=== PATIENT | female | born 1955 ===

== ENCOUNTER 2016-11-09 18:35 | Emergency (ER) | payer OTHER ==
[2016-11-09 18:36] VITALS: BMI 25.6
[2016-11-09 19:04] VITALS: TEMP 98.2
--- NOTE | 2016-11-09 21:09 | CT ---
EXAM: CT Head Without Intravenous Contrast CLINICAL HISTORY: 61 years old, female; Pain; Headache; Headache not specified TECHNIQUE: Axial computed tomography images of the head/brain without intravenous contrast. This CT exam was performed using one or more of the following dose reduction techniques: automated exposure control, adjustment of the mA and/or kV according to patient size, and/or use of iterative reconstruction technique. Coronal and sagittal reformatted images were created and reviewed. EXAM DATE/TIME: 11/09/2016 7:52 PM COMPARISON: There are no prior studies for comparison. FINDINGS: Brain: There is prominence of sulci gyri and ventricles. There is no midline shift. There is decreased attenuation in periventricular white matter. There are multiple age-indeterminate lacunar infarcts in the basal ganglia bilaterally. There are no focal masses. There are no focal hemorrhages. Giron-white differentiation is visualized. Ventricles: See above Bones: Cranial vault is intact. Soft tissues: unremarkable Sinuses: There is sphenoid sinus disease Ears and mastoids: Middle ears and mastoids are unremarkable. Orbits: Orbital contents are unremarkable. IMPRESSION: Multiple bilateral age-indeterminate lacunar infarcts in the basal ganglia, no bleed; sphenoid sinus disease
[2016-11-09 21:19] VITALS: BP 158/89; PULSE 86; RESP 20; O2SAT 100
[2016-11-09 21:34] LABS: BASO % 0.2 % (0.0-2.0); HEMATOCRIT 37.4 % (34.0-47.0); LYMPH # 2.1 K/uL (1.0-4.3); LYMPH % 26.5 % (20.0-40.0); MEAN CELL VOLUME 83.5 fl (81.0-99.0); MEAN CORPUSCULAR HEMOGLOBIN 27.4 pg (27.0-31.0); MEAN CORPUSCULAR HGB CONC 32.8 g/dL (33.0-37.0); MEAN PLATELET VOLUME 9.2 fl (7.2-11.7); MONO # 0.7 K/uL (0.0-0.8); MONO % 8.8 % (0.0-10.0); NEUT # 5.1 K/uL (1.8-7.0); NEUT % 64.5 % (50.0-75.0); NRBC % 0.1 % (0.0-0.0); RED CELL DISTRIBUTION WIDTH 14.2 % (11.5-14.5); WHITE BLOOD COUNT 7.9 K/uL (4.8-10.8)
[2016-11-09 21:45] LABS: BLOOD UREA NITROGEN 15 mg/dl (7-17); CALCIUM 9.9 mg/dL (8.4-10.2); CARBON DIOXIDE 29 mmol/L (22-30); CHLORIDE 99 mmol/L (98-107); GFR AFRICAN-AMERICAN > 60; GLUCOSE,RANDOM 326 mg/dL (65-105); POTASSIUM 4.6 MMOL/L (3.6-5.0); SODIUM 144 mmol/l (132-148)
--- NOTE | 2016-11-09 22:38 | ED PDOC ---
HPI: General Adult Time Seen by Provider: 11/09/16 19:26 Chief Complaint (Nursing): Headache Chief Complaint (Provider): neck pain, h/a History Per: Patient Additional Complaint(s): pt presents c/o R sided neck pain for two weeks, now with R sided h/a x one week. denies recent fall or injury but states she has been getting around in wheelchair for months r/t R foot fx. no numbness, weakness distally, cp, sob, abd pain, n/v, dizziness, blurred vision. no relief with tylenol taken at home this am. Past Medical History Reviewed: Historical Data, Nursing Documentation, Vital Signs Vital Signs: Last Vital Signs Temp 98.2 F 11/09/16 19:03 Pulse 86 11/09/16 21:19 Resp 20 11/09/16 21:19 BP 158/89 H 11/09/16 21:19 Pulse Ox 100 11/09/16 21:19 - Medical History PMH: Arthritis, Diabetes, Fractures (trimalleolar ), HTN, Hypercholesterolemia, Hyperlipidemia Denies: Chronic Kidney Disease - Surgical History Surgical History: - Family History Family History: States: No Known Family Hx - Social History Current smoker - smoking cessation education provided: No Alcohol: None Drugs: Denies - Immunization History Hx Tetanus Toxoid Vaccination: No Hx Influenza Vaccination: No Hx Pneumococcal Vaccination: No - Home Medications Home Medications: Ambulatory Orders Medication Instructions Recorded Losartan [Cozaar] 50 mg PO DAILY 06/16/16 MetFORMIN [glucOPHAGE] 1,000 mg PO BID 06/16/16 Insulin Human (NPH)/Regular 7 units SUBCUT BID 07/11/16 [Novolin 70/30 (70/30 units/ml) 10 ml] amLODIPine [Norvasc] 5 mg PO DAILY 07/11/16 oxyCODONE/Acetaminophen [Percocet 1 tab PO Q4 PRN #30 tab 07/19/16 5/325 mg Tab] Vit E Acetate/Gly/Dimeth/Water 473 ml TP BID #1 lotion 08/22/16 [Moisturizing Lotion] Cyclobenzaprine [Flexeril] 5 mg PO Q8 #15 tab 11/09/16 Naproxen [Naprosyn Tab] 375 mg PO BID #20 tab 11/09/16 - Allergies Allergies/Adverse Reactions: Allergies Allergy/AdvReac Type Severity Reaction Status Date / Time No Known Allergies Allergy Verified 11/09/16 19:02 Review of Systems ROS Statement: Except As Marked, All Systems Reviewed And Found Negative Musculoskeletal: Positive for: Neck Pain Neurological: Positive for: Headache Physical Exam - Reviewed Nursing Documentation Reviewed: Yes Vital Signs Reviewed: Yes - Physical Exam Appears: Positive for: Non-toxic, Uncomfortable Head Exam: Positive for: ATRAUMATIC, NORMAL INSPECTION, NORMOCEPHALIC Skin: Positive for: Normal Color, Warm, DRY Eye Exam: Positive for: EOMI, Normal appearance, PERRL Neck: Positive for: Pain On Movement Of Neck (R rotation, flexion. no midline tenderness) Cardiovascular/Chest: Positive for: Regular Rate, Rhythm Respiratory: Positive for: CNT, Normal Breath Sounds Gastrointestinal/Abdominal: Positive for: Normal Exam, Bowel Sounds, Soft. Negative for: Tenderness Extremity: Positive for: Normal ROM. 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 Negative for: Motor/Sensory Deficits - Laboratory Results Result Diagrams: 11/09/16 21:26 11/09/16 21:26 - ECG O2 Sat by Pulse Oximetry: 100 Medical Decision Making Medical Decision Making: pt declining morphine as it is too strong for her. ct head shows no acute abnormality. labs wnl excepting hyperglycemia. ekg shows LBBB, no change from previous 06/22. 2230 h/a resolved on it's own and neck pain improving w/o intervention. bp improved. will d/c home on naprosyn, flexeril to f/u pmd. Disposition - Clinical Impression Clinical Impression: Cervical strain - Patient ED Disposition Is Patient to be Admitted: No - Disposition Referrals: [facility] [Outside] Disposition: Routine/Home Disposition Time: 22:40 Condition: GOOD Prescriptions: Cyclobenzaprine [Flexeril] 5 mg PO Q8 #15 tab Naproxen [Naprosyn Tab] 375 mg PO BID #20 tab Instructions: Cervical Sprain (ED) Print Language: GUATEMALAN
--- NOTE | 2016-11-10 19:11 | CARD ---
APPROVED REPORT EKG Measurement Heart [id number] AR [id number] <Conclusion> Normal sinus rhythm Possible Left atrial enlargement Left bundle branch block Abnormal ECG
== END 2016-11-09 23:15 | disposition home or self-care (01) ==
LOC: H.ER 18:35
DX: R51 Headache (principal); M54.2 Cervicalgia; E11.9 Type 2 diabetes mellitus without complications; I10 Essential (primary) hypertension

== ENCOUNTER 2017-04-15 18:59 | Emergency (ER) | payer SELFPAY ==
[2017-04-15 18:59] VITALS: BMI 25.6
[2017-04-15 19:15] VITALS: RESP 18; TEMP 98.5; O2SAT 97
[2017-04-15] MEDS ORDERED: Sodium Chloride 0.9% 500 ML IV STA (19:45)
--- NOTE | 2017-04-15 19:53 | ED PDOC ---
HPI: Wound Care - HPI Time Seen by Provider: 04/15/17 19:36 Chief Complaint (Nursing): Lower Extremity Problem/Injury Chief Complaint (Provider): Lower Extremity Problem/Injury History Per: Patient Exam Limitations: no limitations Onset/Duration Of Symptoms: Days (x3) Current Symptoms Are (Timing): Still Present Additional Complaint(s): Aisha Dang is a 62 year old female with previous medical history of HTN, hypercholestolemia, arthritis and diabetes, who presents to the emergency department with right ankle pain associated with redness, swelling and watery discharge at previous surgical site ongoing for 3 days. Denied any numbness, tingling sensation, calf tenderness, shortness of breath, chest pain or weakness. Patient stated she had right ankle surgery performed by podiatry residents at [facility] on 07/2016 and took Tylenol for pain relief. PMD: none provided Past Medical History Reviewed: Historical Data, Nursing Documentation, Vital Signs Vital Signs: Last Vital Signs Temp 98.5 F 04/15/17 19:12 Pulse 88 04/15/17 19:12 Resp 18 04/15/17 19:12 BP 156/72 H 04/15/17 19:12 Pulse Ox 97 04/15/17 19:12 - Medical History PMH: Arthritis, Diabetes, Fractures (trimalleolar ), HTN, Hypercholesterolemia, Hyperlipidemia Denies: Chronic Kidney Disease - Surgical History Surgical History: - Family History Family History: States: Unknown Family Hx - Social History Current smoker - smoking cessation education provided: No Alcohol: None Drugs: Denies - Immunization History Hx Tetanus Toxoid Vaccination: No Hx Influenza Vaccination: No Hx Pneumococcal Vaccination: No - Home Medications Home Medications: Ambulatory Orders Medication Instructions Recorded Losartan [Cozaar] 50 mg PO DAILY 06/16/16 MetFORMIN [glucOPHAGE] 1,000 mg PO BID 06/16/16 Insulin Human (NPH)/Regular 7 units SUBCUT BID 07/11/16 [Novolin 70/30 (70/30 units/ml) 10 ml] amLODIPine [Norvasc] 5 mg PO DAILY 07/11/16 oxyCODONE/Acetaminophen [Percocet 1 tab PO Q4 PRN #30 tab 07/19/16 5/325 mg Tab] Vit E Acet/Glycerin/Dimeth/H2o 473 ml TP BID #1 lotion 08/22/16 [Moisturizing Lotion] Cyclobenzaprine [Flexeril] 5 mg PO Q8 #15 tab 11/09/16 Naproxen [Naprosyn Tab] 375 mg PO BID #20 tab 11/09/16 - Allergies Allergies/Adverse Reactions: Allergies Allergy/AdvReac Type Severity Reaction Status Date / Time No Known Allergies Allergy Verified 11/09/16 19:02 Review of Systems ROS Statement: Except As Marked, All Systems Reviewed And Found Negative Constitutional: Negative for: Weakness Cardiovascular: Negative for: Chest Pain Respiratory: Negative for: Shortness of Breath Musculoskeletal: Positive for: Foot Pain (right ankle associated with redness, swelling and watery drainage). Negative for: Other (calf tenderness) Neurological: Negative for: Numbness (or tingling ) Physical Exam - Reviewed Nursing Documentation Reviewed: Yes Vital Signs Reviewed: Yes - Physical Exam Appears: Positive for: Well, Non-toxic, No Acute Distress Head Exam: Positive for: ATRAUMATIC, NORMAL INSPECTION, NORMOCEPHALIC Cardiovascular/Chest: Positive for: Regular Rate, Rhythm. Negative for: Chest Non Tender Respiratory: Positive for: Normal Breath Sounds. Negative for: Respiratory Distress Pulses-Dorsalis Pedis (L): 2+ Pulses-Dorsalis Pedis (R): 2+ Back: Positive for: Normal Inspection. Negative for: L CVA Tenderness, R CVA Tenderness Extremity: Positive for: Normal ROM, Tenderness (right ankle laterally), Deformity (surgical site noted on right ankle), Swelling (R ankle). 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 No DVT in the visualized common femoral, femoral, proximal deep femoral or popliteal veins. The veins demonstrate normal color flow, are normally compressible, with normal phasic flow and/or augmentation response. Superficial veins: Unremarkable. No thrombus in the visualized great saphenous vein. Soft tissues: No acute findings. No popliteal cyst. IMPRESSION: Normal right lower extremity duplex venous ultrasound. Scribe Attestation: Documented by Lina Renteria, acting as a scribe for Je Chavarria MD. Provider Scribe Attestation: All medical record entries made by the Scribe were at my direction and personally dictated by me. I have reviewed the chart and agree that the record accurately reflects my personal performance of the history, physical exam, medical decision making, and the department course for this patient. I have also personally directed, reviewed, and agree with the discharge instructions and disposition. 2140: Stable. AAOx3. Pain controlled. Podiatry saw pt. Will address wound. States no infection and will fu in clinic. No antibiotics. Glucose elevated , will give insulin. Disposition - Clinical Impression Clinical Impression: Wound dehiscence, Hyperglycemia - Patient ED Disposition Is Patient to be Admitted: No Counseled Patient/Family Regarding: Studies Performed, Diagnosis, Need For Followup - Disposition Referrals: [facility] [Outside] - 04/17/17 Podiatry Clinic [Outside] - 04/17/17 Disposition: Routine/Home Disposition Time: 20:41 Condition: STABLE Additional Instructions: Return if not better in 3 days. Instructions: Diabetic Hyperglycemia (ED), Wound Dehiscence (ED) Forms: [employer] (Puerto Rican) Print Language: TRINIDADIAN
--- NOTE | 2017-04-15 20:22 | CP.PCM.CON ---
History of Present Illness - History of Present Illness History of Present Illness: 62 year old female with PMHx including Diabetes, HTN, Hypercholesterolemia, Hyperlipidemia was seen at bedside ED regarding right ankle wound. Patient states that she had right ankle ORIF July of 2016. She states that since the surgery, she has had pain in her right foot and ankle. 3 days ago she noticed drainage coming for a wound on her right ankle. Patient states that the wound has been presents for 2 weeks. Patient denies taking any medication for pain. Denies applying dressing to right ankle wound. Patient denies of any N /V/F/C or SOB today. Past Patient History - Past Medical History & Family History Past Medical History?: Yes - Past Social History Alcohol: None Drugs: Denies - CARDIAC Hx Hypercholesterolemia: Yes Hx Hypertension: Yes - PULMONARY Hx Respiratory Disorders: No - NEUROLOGICAL Hx Neurological Disorder: No - HEENT Hx HEENT Problems: No - RENAL Hx Chronic Kidney Disease: No - ENDOCRINE/METABOLIC Hx Endocrine Disorders: No Hx Diabetes Mellitus Type 2: Yes - HEMATOLOGICAL/ONCOLOGICAL Hx Blood Disorders: No - INTEGUMENTARY Hx Dermatological Problems: No - MUSCULOSKELETAL/RHEUMATOLOGICAL Hx Arthritis: Yes Hx Fractures: Yes (trimalleolar ) - GASTROINTESTINAL Hx Gastrointestinal Disorders: No - GENITOURINARY/GYNECOLOGICAL Hx Genitourinary Disorders: No - PSYCHIATRIC Hx Psychophysiologic Disorder: No Hx Substance Use: No - SURGICAL HISTORY Hx Surgeries: Yes Hx Section: Yes (x1) - ANESTHESIA Hx Anesthesia: Yes Hx Anesthesia Reactions: No Hx Malignant Hyperthermia: No Meds Allergies/Adverse Reactions: Allergies Allergy/AdvReac Type Severity Reaction Status Date / Time No Known Allergies Allergy Verified 11/09/16 19:02 - Medications Medications: Current Medications Sodium Chloride (Sodium Chloride 0.9%) 500 mls @ 100 mls/hr IV .Q5H STA Stop: 04/16/17 00:44 Physical Exam - Constitutional Appears: Well, Non-toxic, No Acute Distress - Extremities Exam Additional comments: right lower extremity focused exam: Vasc: DP and PT 2/4, TG wnl, CFT < 3 sec to all digits, no edema Neuro: grossly sensation diminished Derm: Open ulceration measuring approximately 4 mm by 2 mm noted on the proximal aspect of the previous surgical incision site, base is fibrogranular, no drainage noted, no purulence, no acute clinical signs of infection noted. Non -pitting edema noted to right foot and ankle. Ortho: tenderness on palpation of right ankle - Neurological Exam Neurological exam: Alert, Oriented x3 - Psychiatric Exam Psychiatric exam: Normal Affect, Normal Mood Results - Vital Signs Recent Vital Signs: Last Vital Signs Temp 98.5 F 04/15/17 19:12 Pulse 88 04/15/17 19:12 Resp 18 04/15/17 19:12 BP 156/72 H 04/15/17 19:12 Pulse Ox 97 04/15/17 20:09 - Labs Result Diagrams: 04/15/17 20:40 04/15/17 20:45 Assessment & Plan - Assessment and Plan (Free Text) Assessment: 62 year old female 9 months s/p right ankle ORIF with open ulceration Plan: patient examined and evaluated discussed in detail with attending, Dr. Shaw chart, labs, vitals reviewed;afebrile, WBC 6.1 radiographs reviewed: surgical hardware noted to be intact wound cleansed with normal sterile saline dressed with bacitracin, DSD, YESI patient to dressing wound daily with bacitracin and DSD RICE therapy motrin PRN patient to follow up in podiatry clinic
[2017-04-15 20:51] LABS: BASO % 0.4 % (0.0-2.0); HEMATOCRIT 33.9 % (34.0-47.0); LYMPH # 1.6 K/uL (1.0-4.3); MEAN CELL VOLUME 80.9 fl (81.0-99.0); MEAN CORPUSCULAR HEMOGLOBIN 25.6 pg (27.0-31.0); MEAN CORPUSCULAR HGB CONC 31.6 g/dL (33.0-37.0); MEAN PLATELET VOLUME 8.8 fl (7.2-11.7); MONO # 0.6 K/uL (0.0-0.8); MONO % 9.2 % (0.0-10.0); NEUT # 3.9 K/uL (1.8-7.0); NEUT % 64.4 % (50.0-75.0); NRBC % 0.1 % (0.0-0.0); RED CELL DISTRIBUTION WIDTH 15.9 % (11.5-14.5); WHITE BLOOD COUNT 6.1 K/uL (4.8-10.8)
[2017-04-15 20:53] LABS: VENOUS BLOOD GAS BASE EXCESS 2.6 mmol/L (0.0-2.0); VENOUS BLOOD GAS PCO2 48 mmHg (40-60); VENOUS BLOOD PH 7.38 (7.32-7.43)
[2017-04-15 21:04] LABS: ALB/GLOB RATIO 1.3 (1.0-2.1); ALKALINE PHOSPHATASE 117 U/L (38-126); ALT/SGPT 28 U/L (9-52); AST/SGOT 16 U/L (14-36); BILIRUBIN,TOTAL 0.5 mg/dl (0.2-1.3); BLOOD UREA NITROGEN 26 mg/dl (7-17); CALCIUM 9.2 mg/dL (8.4-10.2); CARBON DIOXIDE 24 mmol/L (22-30); CHLORIDE 100 mmol/L (98-107); GFR AFRICAN-AMERICAN > 60; GLUCOSE,RANDOM 383 mg/dL (65-105); POTASSIUM 3.6 MMOL/L (3.6-5.0); SODIUM 138 mmol/l (132-148); TOTAL PROTEIN 7.4 G/DL (6.3-8.2)
[2017-04-15 21:36] LABS: PARTIAL THROMBOPLASTIN TIME 30.2 Seconds (25.6-37.1)
[2017-04-15] MEDS ORDERED: Insulin Regular 100 units/ml IV STA (21:38)
[2017-04-15] MEDS ORDERED: Insulin Regular 100 units/ml ONE (21:59)
[2017-04-16 00:20] VITALS: BP 180/77; PULSE 85
--- NOTE | 2017-04-16 09:25 | US ---
PROCEDURE: Right lower extremity venous duplex Doppler. HISTORY: r/o dvt COMPARISON: None available. TECHNIQUE: Common femoral, superficial femoral, popliteal and posterior tibial veins were evaluated. Flow was assessed with color Doppler, compressibility, assessment of phasic flow and augmentation response. FINDINGS: COMMON FEMORAL VEIN: Unremarkable. SUPERFICIAL FEMORAL VEIN: Unremarkable. POPLITEAL VEIN: Unremarkable. POSTERIOR TIBIAL VEIN: Unremarkable. OTHER FINDINGS: None. IMPRESSION: No evidence of deep venous thrombosis in the right lower extremity. Concordant results (preliminary interpretation) provided by [facility]. Procedure Completed: 20:08 Preliminary ([facility]) Report: Dictated and Authenticated: 20:35 Final Interpretation: 09:23. April 16, 2017.
--- NOTE | 2017-04-16 09:47 | RAD ---
PROCEDURE: Right Ankle Radiographs. HISTORY: Pain. No history of recent/ related trauma provided Relevant surgical history: July 2016 COMPARISON: None FINDINGS: BONES: Diffuse osteopenia progressive compared to the prior study. No evidence of orthopedic hardware failure. JOINTS: Normal. No osteoarthritis. Ankle mortise maintained. Talar dome intact SOFT TISSUES: Normal. OTHER FINDINGS: None. IMPRESSION: No acute findings related to/accounting for the clinical presentation. Concordant results with the preliminary interpretation rendered by the emergency department physician procedure.
== END 2017-04-15 23:45 | disposition home or self-care (01) ==
LOC: H.ER 18:59
DX: T81.31XA Disruption of external operation (surgical) wound, not elsewhere classified, initial encounter (principal); B95.62 Methicillin resistant Staphylococcus aureus infection as the cause of diseases classified elsewhere; E11.65 Type 2 diabetes mellitus with hyperglycemia; E78.5 Hyperlipidemia, unspecified; I10 Essential (primary) hypertension; Z79.4 Long term (current) use of insulin; Z79.84 Long term (current) use of oral hypoglycemic drugs
CPT/HCPCS: 73610; 80053; 82803; 82948; 85025; 85610; 85730; 87040; 87070; 93971; 96374; 99283; J1885; J7040

== ENCOUNTER 2017-06-19 11:21 | Emergency (ER) | payer SELFPAY ==
[2017-06-19 11:28] VITALS: TEMP 97; BMI 30.3
[2017-06-19 11:31] VITALS: O2SAT 98
--- NOTE | 2017-06-19 12:41 | ED PDOC ---
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 states today she went to the podiatry clinic and was found to have an elevated BP 202/102. Pt. states she took her Losartan (does not know how many miligrams) 30 minutes prior to going to the podiatry clinic. States that she has increased tearing to both eyes but no pain or visual changes. Denies headache, chest pain, SOB, palpitations, fever, abdominal pain. Past Medical History Reviewed: Historical Data, Nursing Documentation, Vital Signs Vital Signs: Last Vital Signs Temp 97 F L 06/19/17 11:27 Pulse 83 06/19/17 11:27 Resp BP 194/103 H 06/19/17 11:27 Pulse Ox 98 06/19/17 11:29 - Medical History PMH: Arthritis, Diabetes, Fractures (trimalleolar ), HTN, Hypercholesterolemia, Hyperlipidemia Denies: Chronic Kidney Disease - Surgical History Surgical History: - Family History Family History: States: No Known Family Hx - Immunization History Hx Tetanus Toxoid Vaccination: No Hx Influenza Vaccination: No Hx Pneumococcal Vaccination: No - Home Medications Home Medications: Ambulatory Orders Medication Instructions Recorded Losartan [Cozaar] 50 mg PO DAILY 06/16/16 MetFORMIN [glucOPHAGE] 1,000 mg PO BID 06/16/16 Insulin Human (NPH)/Regular 7 units SUBCUT BID 07/11/16 [Novolin 70/30 (70/30 units/ml) 10 ml] amLODIPine [Norvasc] 5 mg PO DAILY 07/11/16 oxyCODONE/Acetaminophen [Percocet 1 tab PO Q4 PRN #30 tab 07/19/16 5/325 mg Tab] Vit E Acet/Glycerin/Dimeth/H2o 473 ml TP BID #1 lotion 08/22/16 [Moisturizing Lotion] Cyclobenzaprine [Flexeril] 5 mg PO Q8 #15 tab 11/09/16 Naproxen [Naprosyn Tab] 375 mg PO BID #20 tab 11/09/16 Amoxicillin/Clavulanate [Augmentin 1 tab PO BID #20 tab 05/15/17 500 MG-125 MG] - Allergies Allergies/Adverse Reactions: Allergies Allergy/AdvReac Type Severity Reaction Status Date / Time No Known Allergies Allergy Verified 11/09/16 19:02 Review of Systems ROS Statement: Except As Marked, All Systems Reviewed And Found Negative Physical Exam - Reviewed Nursing Documentation Reviewed: Yes Vital Signs Reviewed: Yes - Physical Exam Appears: Positive for: Well, Non-toxic, No Acute Distress Head Exam: Positive for: ATRAUMATIC, NORMAL INSPECTION, NORMOCEPHALIC Skin: Positive for: Normal Color, Warm. Negative for: Rash Eye Exam: Positive for: Normal appearance, EOMI, PERRL. Negative for: Periorbital swelling, Periorbital tenderness, Conjunctival injection (b/l) ENT: Positive for: Normal ENT Inspection Neck: Positive for: Normal, Painless ROM Cardiovascular/Chest: Positive for: Regular Rate, Rhythm Respiratory: Positive for: CNT, Normal Breath Sounds Gastrointestinal/Abdominal: Positive for: Normal Exam, Bowel Sounds, Soft. Negative for: Tenderness, Mass Back: Positive for: Normal Inspection Extremity: Positive for: Normal ROM Neurologic/Psych: Positive for: Alert, Oriented. Negative for: Aphasia, Facial Droop - ECG O2 Sat by Pulse Oximetry: 98 - Progress ED Course And Treament: Pt. evaluated by Zana, podiatry resident, and arranged for outpt f/u with their clinic in 1 week. BP: 146/75 Disposition - Clinical Impression Clinical Impression: Hypertension - Patient ED Disposition Is Patient to be Admitted: No - Disposition Disposition: Routine/Home Disposition Time: 13:40 Condition: STABLE Instructions: Hypertension (ED) Forms: [employer] (Beninese) Print Language: CYMRO
[2017-06-19 13:02] VITALS: PULSE 74; RESP 18
[2017-06-19 13:44] VITALS: BP 146/75
--- NOTE | 2017-06-19 17:56 | CP.PCM.CON ---
History of Present Illness - History of Present Illness History of Present Illness: 62 year old female seen in the ED after being sent there from the podiatry clinic for elevated blood pressure. Patient states that she was supposed to have surgery this morning to remove painful hardware in her right ankle that is causing an ulceration but she did not receive medical clearance from the doctors in time. Patient states that she has very little pain in her right ankle. She denies any further pedal complaints at this time. She denies N/V/F/C/ CP/SOB. Patient denies any recent headaches, changes in vision or changes in facial expression Past Patient History - Past Medical History & Family History Past Medical History?: Yes - Past Social History Smoking Status: Never Smoked - CARDIAC Hx Hypercholesterolemia: Yes Hx Hypertension: Yes - PULMONARY Hx Respiratory Disorders: No - NEUROLOGICAL Hx Neurological Disorder: No - HEENT Hx HEENT Problems: No - RENAL Hx Chronic Kidney Disease: No - ENDOCRINE/METABOLIC Hx Endocrine Disorders: No Hx Diabetes Mellitus Type 2: Yes - HEMATOLOGICAL/ONCOLOGICAL Hx Blood Disorders: No - INTEGUMENTARY Hx Dermatological Problems: No - MUSCULOSKELETAL/RHEUMATOLOGICAL Hx Arthritis: Yes Hx Fractures: Yes (trimalleolar ) - GASTROINTESTINAL Hx Gastrointestinal Disorders: No - GENITOURINARY/GYNECOLOGICAL Hx Genitourinary Disorders: No - PSYCHIATRIC Hx Psychophysiologic Disorder: No Hx Substance Use: No - SURGICAL HISTORY Hx Surgeries: Yes Hx Section: Yes (x1) - ANESTHESIA Hx Anesthesia: Yes Hx Anesthesia Reactions: No Hx Malignant Hyperthermia: No Meds Allergies/Adverse Reactions: Allergies Allergy/AdvReac Type Severity Reaction Status Date / Time No Known Allergies Allergy Verified 11/09/16 19:02 Physical Exam - Constitutional Appears: Well, Non-toxic, No Acute Distress - Extremities Exam Additional comments: VASC: DP pulses palpable 2/4 b/l. PT pulses weakly palpable 1/4 b/l. CFT <3 seconds to all digits. TG warm to warm. No increase in warmth noted to RLE ulceration or periwound area. Pedal hair absent. NEURO: Gross sensation intact bilaterally. DERM: Ulceration noted to lateral right ankle, proximal to lateral malleolus measuring approximately 2.5 x 0.5 x 0.1 cm - ulcer is noted to have a granular base with no drainage, purulence, malodor, undermining, tunneling, or periwound fluctuance. No underlying hardware is visible at this time. ORTHO: Pain on palpation RLE ulceration - Neurological Exam Neurological exam: Alert, Oriented x3 - Psychiatric Exam Psychiatric exam: Normal Affect, Normal Mood Results - Vital Signs Recent Vital Signs: Last Vital Signs Temp 97 F L 06/19/17 11:27 Pulse 74 06/19/17 13:43 Resp 18 06/19/17 13:43 BP 146/75 06/19/17 13:43 Pulse Ox 98 06/19/17 14:01 Assessment & Plan - Assessment and Plan (Free Text) Assessment: 62 year old female PMHx HTN, DM with right lateral ankle nonhealing ulceration, noninfected secondary to underlying hardware from previous surgery Plan: Patient seen and evaluated in ED Discussed with attending, Dr. Landa Labs and vitals reviewed No signs of infection noted at this time Ulceration cleansed with sterile saline and dressed with DSD Stable from podiatry standpoint Patient to follow up with Dr. Landa next Monday, 06/26 in the podiatry clinic - Date & Time Date: 06/19/17 Time: 15:01
== END 2017-06-19 14:19 | disposition home or self-care (01) ==
LOC: H.ER 11:21
DX: I10 Essential (primary) hypertension (principal); E11.9 Type 2 diabetes mellitus without complications; E78.00 Pure hypercholesterolemia, unspecified; Z79.4 Long term (current) use of insulin

== ENCOUNTER 2017-08-14 11:08 | Emergency (ER) | payer OTHER, SELFPAY ==
[2017-08-14 11:08] VITALS: BMI 30.3
[2017-08-14 14:12] VITALS: RESP 18
[2017-08-14] MEDS ORDERED: Naproxen 500 MG TAB PO STA (14:44)
--- NOTE | 2017-08-14 15:09 | ED PDOC ---
HPI: Headache Time Seen by Provider: 08/14/17 15:00 Chief Complaint (Nursing): Headache Chief Complaint (Provider): Headache and dental pain History Per: Patient History/Exam Limitations: no limitations Onset/Duration Of Symptoms: Other (months) Additional Complaint(s): Patient is a 62 y/o female with no significant past medical history presenting to the emergency department for evaluation of dental pain ongoing for several months with associated headache and facial pain. Patient was initially given antibiotics with reported improvement of symptoms. However, the pain returned. Denies any other complaints. PCP: none provided. Past Medical History Reviewed: Historical Data, Nursing Documentation, Vital Signs Vital Signs: Last Vital Signs Temp 98.0 F 08/14/17 12:35 Pulse 85 08/14/17 14:11 Resp 18 08/14/17 14:11 BP 185/87 H 08/14/17 14:11 Pulse Ox 100 08/14/17 14:11 - Medical History PMH: Arthritis, Diabetes, Fractures (trimalleolar ), HTN, Hypercholesterolemia, Hyperlipidemia Denies: Chronic Kidney Disease - Surgical History Surgical History: - Family History Family History: States: Unknown Family Hx - Immunization History Hx Tetanus Toxoid Vaccination: No Hx Influenza Vaccination: No Hx Pneumococcal Vaccination: No - Home Medications Home Medications: Ambulatory Orders Medication Instructions Recorded Losartan [Cozaar] 50 mg PO DAILY 06/16/16 MetFORMIN [glucOPHAGE] 1,000 mg PO BID 06/16/16 Insulin Human (NPH)/Regular 7 units SUBCUT BID 07/11/16 [Novolin 70/30 (70/30 units/ml) 10 ml] amLODIPine [Norvasc] 5 mg PO DAILY 07/11/16 oxyCODONE/Acetaminophen [Percocet 1 tab PO Q4 PRN #30 tab 07/19/16 5/325 mg Tab] Vit E Acet/Glycerin/Dimeth/H2o 473 ml TP BID #1 lotion 08/22/16 [Moisturizing Lotion] Cyclobenzaprine [Flexeril] 5 mg PO Q8 #15 tab 11/09/16 Naproxen [Naprosyn Tab] 375 mg PO BID #20 tab 11/09/16 Amoxicillin/Clavulanate [Augmentin 1 tab PO BID #20 tab 05/15/17 500 MG-125 MG] Naproxen 1 tab PO Q12 PRN #14 tab 08/14/17 Penicillin VK [Penicillin VK Tab] 500 mg PO QID #40 tab 08/14/17 - Allergies Allergies/Adverse Reactions: Allergies Allergy/AdvReac Type Severity Reaction Status Date / Time No Known Allergies Allergy Verified 11/09/16 19:02 Review of Systems ROS Statement: Except As Marked, All Systems Reviewed And Found Negative ENT: Positive for: Other (dental pain) Neurological: Positive for: Headache (and facial pain) Physical Exam - Reviewed Nursing Documentation Reviewed: Yes Vital Signs Reviewed: Yes - Physical Exam Appears: Positive for: Well, Non-toxic, No Acute Distress Head Exam: Positive for: ATRAUMATIC, NORMAL INSPECTION, NORMOCEPHALIC Skin: Positive for: Normal Color, Warm, Dry Eye Exam: Positive for: Normal appearance ENT: Positive for: Other (multiple teeth decay with tenderness on palpation) Neck: Positive for: Normal, Painless ROM, Supple Cardiovascular/Chest: Positive for: Regular Rate, Rhythm Respiratory: Negative for: Accessory Muscle Use, Respiratory Distress Extremity: Positive for: Normal ROM. Negative for: Pedal Edema Neurologic/Psych: Positive for: Alert, Oriented (x3) - ECG O2 Sat by Pulse Oximetry: 100 (RA) Pulse Ox Interpretation: Normal Medical Decision Making Medical Decision Making: Time: 14:44 Initial impression: Headache Initial plan: Naproxen 500 mg PO Penicillin 500 mg PO ~ Scribe Attestation: Documented by Shahrzad Montoya, acting as a scribe for FELIX Dennison. Provider Scribe Attestation: All medical record entries made by the Scribe were at my direction and personally dictated by me. I have reviewed the chart and agree that the record accurately reflects my personal performance of the history, physical exam, medical decision making, and the department course for this patient. I have also personally directed, reviewed, and agree with the discharge instructions and disposition. Disposition - Clinical Impression Clinical Impression: Pain, dental - Patient ED Disposition Is Patient to be Admitted: No - Disposition Referrals: Enrrique Pacheco DDS [Staff Provider] - Disposition: Routine/Home Disposition Time: 15:35 Condition: FAIR Prescriptions: Naproxen 1 tab PO Q12 PRN #14 tab PRN Reason: Pain, Moderate (4-7) Penicillin VK [Penicillin VK Tab] 500 mg PO QID #40 tab Instructions: Toothache (ED) Forms: [facility] (Swedish) Print Language: UKRAINIAN
[2017-08-14 15:37] VITALS: BP 163/65; PULSE 78; TEMP 98
[2017-08-15 00:42] VITALS: O2SAT 100
== END 2017-08-14 15:37 | disposition home or self-care (01) ==
LOC: H.ER 11:08
DX: K08.89 Other specified disorders of teeth and supporting structures (principal); E11.9 Type 2 diabetes mellitus without complications; E78.00 Pure hypercholesterolemia, unspecified; I10 Essential (primary) hypertension; Z79.4 Long term (current) use of insulin

== ENCOUNTER 2017-08-22 09:11 | Emergency (ER) | payer SELFPAY ==
[2017-08-22 09:14] VITALS: BMI 27.4
[2017-08-22 09:16] VITALS: PULSE 80; TEMP 98.5
[2017-08-22] MEDS ORDERED: Iohexol 240 (50 ml) PO ONE (10:37)
--- NOTE | 2017-08-22 10:40 | ED PDOC ---
HPI: Back Chief Complaint (Provider): Left lower abdominal pain History Per: Patient, Family History/Exam Limitations: no limitations Onset/Duration Of Symptoms: Days (1 week ), Gradual Current Symptoms Are (Timing): Constant Quality Of Discomfort: Sharp, Dull, "Pain" Severity: Moderate Pain Scale Rating Of: 9 Previous Symptoms: None Associated Symptoms: None Exacerbating Factor(s): Movement, Sitting Additional Complaint(s): 62 y/o female with PMHx of DM, HTN, HLD presents complaining of 1 week hx of LLQ abominal pain. Pain started gradually without any inciting/triggering events. Pain started off in LLQ and began radiating to left lower back. Pain started as 4/10 and worsened acutely last night to 9/10. Pain is constant, and pt denies any alleviating factors. No relation with food consumption. Last BM was yesterday, hard stool, no straining. Denies taking any medications other than prescribed meds. No other complaints. No hx of diverticulosis or issues. No hx of colonoscopy. LMP 16 years ago. Denies fever/chills, CP/SOB/ Palpitations, N/V/D/C, changes in appetite, urinary symptoms, melena, hematochezia, numbness/tingling. <Richard Brownlee - Last Filed: 08/22/17 11:11> <Phong Funk - Last Filed: 08/22/17 14:19> Chief Complaint (Nursing): Back Pain Past Medical History Vital Signs: Last Vital Signs Temp 98.5 F 08/22/17 09:14 Pulse 80 08/22/17 09:14 Resp 17 08/22/17 09:14 BP 194/87 H 08/22/17 09:14 Pulse Ox 98 08/22/17 09:14 - Medical History PMH: Arthritis, Diabetes, Fractures (trimalleolar ), HTN, Hypercholesterolemia, Hyperlipidemia Denies: Chronic Kidney Disease - Surgical History Surgical History: - Family History Family History: States: Unknown Family Hx - Immunization History Hx Tetanus Toxoid Vaccination: No Hx Influenza Vaccination: No Hx Pneumococcal Vaccination: No <Richard Brownlee - Last Filed: 08/22/17 11:11> Vital Signs: Last Vital Signs Temp 98.5 F 08/22/17 09:14 Pulse 80 08/22/17 09:14 Resp 17 08/22/17 09:14 BP 148/68 08/22/17 10:45 Pulse Ox 98 08/22/17 11:16 <Phong Funk - Last Filed: 08/22/17 14:19> - Home Medications Home Medications: Ambulatory Orders Medication Instructions Recorded Losartan [Cozaar] 50 mg PO DAILY 06/16/16 MetFORMIN [glucOPHAGE] 1,000 mg PO BID 06/16/16 Insulin Human (NPH)/Regular 7 units SUBCUT BID 07/11/16 [Novolin 70/30 (70/30 units/ml) 10 ml] amLODIPine [Norvasc] 5 mg PO DAILY 07/11/16 oxyCODONE/Acetaminophen [Percocet 1 tab PO Q4 PRN #30 tab 07/19/16 5/325 mg Tab] Vit E Acet/Glycerin/Dimeth/H2o 473 ml TP BID #1 lotion 08/22/16 [Moisturizing Lotion] Cyclobenzaprine [Flexeril] 5 mg PO Q8 #15 tab 11/09/16 Naproxen [Naprosyn Tab] 375 mg PO BID #20 tab 11/09/16 Amoxicillin/Clavulanate [Augmentin 1 tab PO BID #20 tab 05/15/17 500 MG-125 MG] Naproxen 1 tab PO Q12 PRN #14 tab 08/14/17 Penicillin VK [Penicillin VK Tab] 500 mg PO QID #40 tab 08/14/17 Dicyclomine [Dicyclomine HCl] 10 mg PO Q8 #10 cap 08/22/17 Docusate [Colace] 100 mg PO DAILY #10 cap 08/22/17 - Allergies Allergies/Adverse Reactions: Allergies Allergy/AdvReac Type Severity Reaction Status Date / Time No Known Allergies Allergy Verified 11/09/16 19:02 Review of Systems ROS Statement: Except As Marked, All Systems Reviewed And Found Negative <Richard Brownlee - Last Filed: 08/22/17 11:11> Physical Exam - Reviewed Vital Signs Reviewed: Yes - Physical Exam Appears: Positive for: Non-toxic, No Acute Distress Head Exam: Positive for: ATRAUMATIC, NORMOCEPHALIC Skin: Positive for: Normal Color, Warm, Dry Eye Exam: Positive for: EOMI, PERRL. Negative for: Conjunctival injection, Scleral icterus Cardiovascular/Chest: Positive for: Regular Rate, Rhythm. Negative for: Chest Non Tender, JVD Respiratory: Positive for: Normal Breath Sounds. Negative for: Crackles, Rales , Rhonchi Pulses-Carotid (L): 2+ Pulses-Carotid (R): 2+ Gastrointestinal/Abdominal: Positive for: Bowel Sounds (normal BS), Soft, Tenderness (LLQ), Guarding (voluntary guarding in region of LLQ). Negative for : Organomegaly, Mass, Distended, Rebound, Asicites Back: Negative for: L CVA Tenderness, R CVA Tenderness, Vertebral Tenderness, Muscle Spasm Extremity: Negative for: Tenderness, Pedal Edema Neurologic/Psych: Positive for: Alert, account contact associate II-XII, Oriented. Negative for: Motor/Sensory Deficits <Richard Brownlee - Last Filed: 08/22/17 11:11> - ECG O2 Sat by Pulse Oximetry: 98 - Progress ED Course And Treament: CMP CBC UA Abd/Pelvic CT w PO/IV contrast Bentyl 10mg re-evaluate <Richard Brownlee - Last Filed: 08/22/17 11:11> - Laboratory Results Result Diagrams: 08/22/17 11:20 08/22/17 11:20 <Phong Funk - Last Filed: 08/22/17 14:19> Disposition <Richard Brownlee - Last Filed: 08/22/17 11:11> - Patient ED Disposition Is Patient to be Admitted: No Counseled Patient/Family Regarding: Studies Performed, Diagnosis, Need For Followup, Rx Given - Disposition Disposition: Routine/Home Disposition Time: 14:17 <Phong Funk - Last Filed: 08/22/17 14:19> - Clinical Impression Clinical Impression: Abdominal pain, Constipation - Disposition Referrals: [facility] [Outside] Condition: FAIR Prescriptions: Dicyclomine [Dicyclomine HCl] 10 mg PO Q8 #10 cap Docusate [Colace] 100 mg PO DAILY #10 cap Instructions: Abdominal Pain (ED), Constipation (ED) Forms: [facility] (Ukrainian)
[2017-08-22] MEDS ORDERED: Iohexol 240 (50 ml) ONE (10:52)
[2017-08-22 11:30] LABS: HEMOGLOBIN 11.6 g/dL (12.0-16.0); MEAN CELL VOLUME 80.1 fl (81.0-99.0); MEAN CORPUSCULAR HEMOGLOBIN 25.8 pg (27.0-31.0); MEAN CORPUSCULAR HGB CONC 32.2 g/dL (33.0-37.0); RBC 4.5 Mil/uL (3.80-5.20); RED CELL DISTRIBUTION WIDTH 15.3 % (11.5-14.5); WHITE BLOOD COUNT 8.3 K/uL (4.8-10.8)
[2017-08-22 11:31] LABS: SQUAMOUS EPITHIAL < 1 /hpf (0-5); URINE BILIRUBIN NEGATIVE (NEGATIVE); URINE BLOOD NEGATIVE (NEGATIVE); URINE CLARITY CLEAR (Clear); URINE COLOR COLORLESS (YELLOW); URINE GLUCOSE (UA) 150 mg/dL (Normal); URINE LEUKOCYTE ESTERASE NEG Leu/uL (Negative); URINE NITRATE NEGATIVE (NEGATIVE); URINE PROTEIN NEGATIVE (NEGATIVE); URINE UROBILINOGEN 0.2-1.0 mg/dL (0.2-1.0)
[2017-08-22 11:41] LABS: ALBUMIN 4.3 g/dL (3.5-5.0); ALT/SGPT 28 U/L (9-52); AST/SGOT 22 U/L (14-36); BLOOD UREA NITROGEN 20 mg/dl (7-17); CALCIUM 9.7 mg/dL (8.4-10.2); GFR AFRICAN-AMERICAN > 60; GFR NON-AFRICAN AMERICAN > 60
[2017-08-22 11:44] LABS: ALB/GLOB RATIO 1.1 (1.0-2.1)
[2017-08-22] MEDS ORDERED: Potassium Chloride 20 mEq/15 ml LIQ UD PO ONE (12:16)
[2017-08-22] MEDS ORDERED: Sodium Chloride 0.9% 50 ML IV ONE (12:42)
[2017-08-22] MEDS ORDERED: Iohexol 300 100 ML IJ ONE (12:42)
--- NOTE | 2017-08-22 14:02 | CT ---
PROCEDURE: CT Abdomen and Pelvis with contrast HISTORY: Left lower quadrant pain, back pain COMPARISON: None. TECHNIQUE: Contrast dose: 95 cc Omnipaque 300. Radiation dose: Total exam DLP = 959.47 mGy-cm. This CT exam was performed using one or more of the following dose reduction techniques: Automated exposure control, adjustment of the mA and/or kV according to patient size, and/or use of iterative reconstruction technique. FINDINGS: LOWER THORAX: Small hiatal hernia. LIVER: Unremarkable. No gross lesion or ductal dilatation. GALLBLADDER AND BILE DUCTS: Unremarkable. PANCREAS: Unremarkable. No gross lesion or ductal dilatation. SPLEEN: Unremarkable. ADRENALS: Unremarkable. No mass. KIDNEYS AND URETERS: Unremarkable. No hydronephrosis. No solid mass. VASCULATURE: Unremarkable. No aortic aneurysm. BOWEL: Diffuse thickening of the wall of the stomach. However, the stomach is partially collapsed. The findings are nonspecific but can be seen with gastritis. Constipation without fecal impaction or obstruction. APPENDIX: Normal appendix. PERITONEUM: Unremarkable. No free fluid. No free air. LYMPH NODES: Unremarkable. No enlarged lymph nodes. BLADDER: Unremarkable. REPRODUCTIVE: Unremarkable. BONES: No acute fracture. OTHER FINDINGS: None. IMPRESSION: No significant or acute findings to account for/ related to the clinical presentation. Additional benign and/or incidental findings described above. This includes small hiatal hernia. Collapse of the stomach is likely accounting for thickening of gastric mucosa.
[2017-08-22 14:30] VITALS: BP 156/86; RESP 18; O2SAT 100
== END 2017-08-22 14:30 | disposition home or self-care (01) ==
LOC: H.ER 09:11
DX: K59.00 Constipation, unspecified (principal); R10.32 Left lower quadrant pain; E11.9 Type 2 diabetes mellitus without complications; I10 Essential (primary) hypertension; Z79.4 Long term (current) use of insulin
CPT/HCPCS: 74177; 80053; 81003; 85027; 96372; 99283; J0500; Q9966; Q9967

== ENCOUNTER 2017-11-20 09:11 | Day surgery (SDC) | payer SELFPAY ==
[2017-11-15 11:25] VITALS: BMI 29.5
[2017-11-20] MEDS ORDERED: Bupivacaine 0.5% Inj(30mL) ONE (10:22)
[2017-11-20] MEDS ORDERED: Lidocaine Hydrochloride 1% 0 ML ONE (10:22)
[2017-11-20] MEDS ORDERED: Propofol 10 mg/ml Inj (20 ML) ONE (10:56)
[2017-11-20] MEDS ORDERED: Midazolam 2 MG/2 ML VIAL ONE (10:57)
[2017-11-20] MEDS ORDERED: Lidocaine 2% Jelly (5 ml) TOP ONE (10:59)
[2017-11-20] MEDS ORDERED: Succinylcholine 200 mg/10 ml Inj IV ONE (11:04)
[2017-11-20] MEDS ORDERED: Rocuronium 10 mg/ml (5 ml) ONE (11:09)
[2017-11-20] MEDS ORDERED: Sevoflurane - Inhalation Anesthetic Liq (250 ml) ONE (11:13)
[2017-11-20] MEDS ORDERED: Lactated Ringer's 1,000 ML IV ONE ×2 (11:28→14:00)
[2017-11-20] MEDS ORDERED: Bupivacaine 0.5% 50 ML IJ ONE (11:37)
[2017-11-20] MEDS ORDERED: Lidocaine 2% MPF (5 ml) Inj ONE (12:36)
[2017-11-20] MEDS ORDERED: Neostigmine 1:1000 (1 mg/ml) Inj ONE (12:55)
--- NOTE | 2017-11-20 14:03 | PCM.SURG1 ---
Surgeon's Initial Post Op Note - Surgeon's Notes Surgeon: Dr. Shayne Landa, DPM Cosmetic Sales Assistant: Caty Adamson, PGY2, Lisa Guido PGY1 Type of Anesthesia: General Endo Anesthesia Administered By: Dr. Soria Pre-Operative Diagnosis: Painful hardware, right ankle Operative Findings: See dictation report. M- 3-0 vicryl, 4-0 vicryl, 4-0 nylon. I- Postoperative popliteal block Post-Operative Diagnosis: Same Operation Performed: Removal of painful hardware, right ankle Specimen/Specimens Removed: None Estimated Blood Loss: EBL {In ML}: 5 Blood Products Given: N/A Drains Used: No Drains Post-Op Condition: Good Date of Surgery/Procedure: 11/20/17 Time of Surgery/Procedure: 14:03
[2017-11-20] MEDS ORDERED: Oxycodone/Acetaminophen 5/325 mg Tab PO PRN ×2 (14:05)
[2017-11-20] MEDS ORDERED: HYDROmorphone 0.5 mg/0.5 ml ISec IVP PRN (14:06)
--- NOTE | 2017-11-20 14:17 | PCM.ANESB2 ---
Popliteal Nerve Block - Popliteal Nerve Block Date of Procedure: 11/20/17 Anesthesiologist: Raymundo Messina M.D. Pre-Procedure Diagnosis: Hardware, Right ankle Post-Procedure Diagnosis: Hardware, Right ankle Procedure Performed: Popliteal Nerve Block Right - Procedure Popliteal Nerve Block: This procedure was explained to the patient that it is for post-operative pain management. Consent was obtained after a thorough discussion with the patient regarding the benefits and possible complications of local anesthetic block of the sciatic nerve at the popliteal level. The patient was brought to the operating room and standard monitors are applied. Time-out was held with the circulating nurse to confirm the correct surgery and the appropriate block.Under general anesthesia, patient positioned prone, popliteal nerve block was done using out of plane technique. The ultrasound transducer was then applied to the posterior thigh approximately 8cm above the popliteal crease in the transverse plane and the sciatic nerve before its division was visualized lateral to the popliteal artery and in between the bicep femoris and semimembranosus/semitendinosus muscles. After identification, the lateral portion of the thigh was prepped with Betadine solution three times and Lidocaine 1% was injected subcutaneously for topical anesthesia. At this point, a # 21 gauge Stimuplex insulated 4 inch needle was inserted into pre-marked area and advanced in a perpendicular direction. The needle was inserted above the ultrasound transducer in-plane towards the sciatic nerve in a [id number] direction. Needle advancement was performed carefully under direct ultrasound visualization. Nerve stimulator was used and dorsiflexion of the _right____ foot was elicited at a current of _.4____ MA. After repeated negative aspiration, _30____cc of __.5___ % _Bupivacaine was injected . . Under ultrasound guidance the local anesthetics were observed surrounding sciatic nerve . The needle was removed intact and sterile dressing was applied. The patient tolerated the popliteal nerve block well with stable vital signs and was subsequently brought to the pacu. .
[2017-11-20] MEDS ORDERED: Labetalol 5 mg/ml Inj 20ML IVP STA (14:31)
--- NOTE | 2017-11-20 14:58 | RAD ---
PROCEDURE: Right Ankle Radiographs. HISTORY: s/p removal of hardware right ankle COMPARISON: Preoperative study 11/08/2017 FINDINGS: BONES: Status post removal of orthopedic hardware distal tibia and fibula. Expected postoperative findings identified. JOINTS: No significant interval change compared to the prior examination(s). SOFT TISSUES: Normal. OTHER FINDINGS: None. IMPRESSION: Satisfactory postoperative status.
--- NOTE | 2017-11-20 15:08 | RAD ---
PROCEDURE: Fluoroscopy over 1 hour. HISTORY: RIGHT ANKLE COMPARISON: None TECHNIQUE: Total fluoroscopic time (continuous mode) utilized during the procedure 2.9 seconds FINDINGS: Submitted images from the current procedure: 1.0 IMPRESSION: Fluoroscopy provided for removal of orthopedic hardware distal tibia and fibula.
--- NOTE | 2017-11-20 16:27 | CP.PCM.PN ---
Subjective - Date & Time of Evaluation Date of Evaluation: 11/20/17 Time of Evaluation: 16:21 - Subjective Subjective: 62 year old female seen preoperatively in [facility] for removal of hardware with possible lateral and medial malleoli osteotomies. Patient is AAO x 3 and NAD, resting comfortably in bed at time of visit. States that she continues to have moderate amounts of pain to her right ankle. Denies any recent N/V/F/C/CP/SOB/D/ posterior calf pain when squeezed. Patient states that she has been NPO since before midnight last night. States that she took her normal diabetes and hypertension medication this morning. Also denies any previous adverse reactions to anesthesia. Objective - Vital Signs/Intake and Output Vital Signs (last 24 hours): Temp Pulse Resp BP Pulse Ox 97.9 F 68 20 132/63 96 11/20/17 09:57 11/20/17 10:03 11/20/17 09:57 11/20/17 09:57 11/20/17 09:57 Intake and Output: 11/20/17 11/20/17 06:59 18:59 Intake Total 1000 Output Total 300 Balance 700 - Medications Medications: Current Medications Acetaminophen (Tylenol 325mg Tab) 650 mg PO Q4 PRN PRN Reason: Pain, Mild (1-3) Hydromorphone HCl (Dilaudid) 0.5 mg IVP Q15M PRN PRN Reason: Pain, moderate (4-7) Stop: 11/21/17 14:07 Oxycodone/Acetaminophen (Percocet 5/325 Mg Tab) 1 tab PO Q4 PRN PRN Reason: Pain, moderate (4-7) Stop: 11/23/17 14:06 Oxycodone/Acetaminophen (Percocet 5/325 Mg Tab) 2 tab PO Q4 PRN PRN Reason: Pain, severe (8-10) Stop: 11/23/17 14:06 - Constitutional Appears: Well, Non-toxic, No Acute Distress - Extremities Exam Additional comments: RLE focused exam: Vasc: DP/PT pulses fully palpable 2/4 b/l. Skin temperature warm to warm from proximal to distal. CFT < 3 seconds to all digits b/l. Minimal edema noted to lateral ankle Neuro: Epicritic and protective sensation grossly diminished Derm: 0.5 cm x 0.5 cm x 0.1 cm ulceration noted to right lateral ankle with no clinical signs of infection. Hyperpigmentation noted to distal right foot. Otherwise no open lesions, wounds, maceration, xerosis, abnormal pigmentation or abnormal growths noted b/l MSK: Minimal POP to lateral right ankle. Decreased ROM to right ankle joint - Neurological Exam Neurological Exam: Alert, Awake, Oriented x3 - Psychiatric Exam Psychiatric exam: Normal Affect, Normal Mood Assessment and Plan - Assessment and Plan (Free Text) Assessment: 62 year old female seen preoperatively in [facility] for removal of hardware with possible lateral and medial malleoli osteotomies Plan: Pt was seen and examined in [facility] Pt NPO status was confirmed All Pre-op testing and clearance was in the chart Pt has exhausted all conservative treatment at this time and is opting for surgical intervention Pt was explained procedure and post-operative course All pt's questions were answered to satisfaction No guarantees were made Pt understands all risks, benefits and complications of procedure Pt will follow-up with Dr. Landa in his clinic
--- NOTE | 2017-11-20 16:35 | CP.SDSHP ---
Same Day Surgery H & P - History Proposed Procedure: Removal of painful hardware, right ankle with possible osteotomies of medial and lateral malleoli Pre-Op Diagnosis: Removal of painful hardware, right ankle - Previous Medical/Surgical History Pain: 6.Severe Pain Previous Surgical History: ORIF right ankle - Allergies Allergies: Allergies No Known Allergies Allergy (Verified 11/20/17 10:08) - Physical Exam Vital Signs: Vital Signs 11/20/17 11/20/17 11/20/17 09:57 10:03 16:00 Temperature 97.9 F 98.5 F Pulse Rate 68 68 85 Respiratory 20 20 Rate Blood Pressure 132/63 188/86 H O2 Sat by Pulse 96 98 Oximetry 11/20/17 16:27 Temperature Pulse Rate Respiratory Rate Blood Pressure O2 Sat by Pulse 98 Oximetry Mental Status: Alert & Oriented x3 - {Optional Preform as Required} Integument: WNL Ortho: Other - Impression Pt. Evaluated Today:Candidate for Anesthesia & Procedure: Yes - Date & Time Date: 11/20/17 Time: 08:00 Short Stay Discharge - Short Stay Discharge Admitting Diagnosis/Reason for Visit: M19.171 Disposition: HOME/ ROUTINE Referrals: Cherri Cameron MD [Primary Care Provider] -
[2017-11-20 17:12] VITALS: TEMP 98.2
[2017-11-20 19:22] VITALS: BP 167/82; PULSE 92; RESP 18; O2SAT 95
--- NOTE | 2017-11-22 08:33 | OP ---
PROCEDURE DATE: 11/20/2017 PREOPERATIVE DIAGNOSIS: Right ankle internal fixation. POSTOPERATIVE DIAGNOSIS: Right ankle internal fixation. NAME OF PROCEDURE: Right ankle removal of interna fixation. SURGEON: Shayne Landa DPM ASSISTANTS: 1. Caty Adamson DPM PGY-1. 2. Davion Guido DPM, PGY-1. TYPE OF ANESTHESIA: General. ANESTHESIA ADMINISTERED BY: Dr. Messina INDICATION: The patient is a 62-year-old female with the above-mentioned diagnosis. The patient has exhausted all conservative treatment at this time and now requires surgical intervention. The patient signed the consent after careful explanation of risks, benefits, and possible complications for postprocedure. No guarantees were given or implied. The consent was signed and n.p.o. status was confirmed prior to bringing the patient to the operating room. PREPARATION: The patient was brought into the operating room and placed on the operating room table in the prone position. A time out was performed for identification of correct patient and procedure. A well padded thigh tourniquet was applied to the patient's right thigh. After induction of general anesthesia, the right lower extremity was prepped and draped in usual manner and procedure began. The patient's right lower extremity was then exsanguinated and pneumatic ankle tourniquet was inflated to 350 mmHg and the procedure began. DESCRIPTION OF PROCEDURE: Procedure 1: Right ankle removal of internal fixation. Attention was directed to the posterior aspect of the right ankle and approximately 10 cm linear longitudinal incision was made with #15 blade over the area of the fibular plate. Incision was deepened to the subcutaneous tissue using a combination of sharp and blunt dissection. Care was taken to identify and retract all vital neurovascular structures. Next, utilizing a periosteal, all periosteum was retracted and visualization of the hardware was noted. Utilizing removed and then using a periosteal elevator and osteotome mallet, the plate was removed. The area was then irrigated with copious amounts of normal sterile saline. Next, the attention was then directed to the were visualized under fluoroscopy. The periosteum was then with periosteal elevator and the screws and washers were then removed and passed off the field. The surgical site was then irrigated with copious amount of normal sterile saline and it was noted on fluoroscopic guidance that no other hardware remained in ankle. A 1 mL of was inserted into the previous screw hole. The incisions were then closed with #3-0 and 4-0 Vicryl and the skin was closed with #4-0 nylon. Postoperative dressings included Adaptic 4 x 4, Corrina and a well padded posterior splint. The patient received a popliteal block by anesthesia. POSTOPERATIVE CONDITION: The patient tolerated the anesthesia and procedure well with no apparent complications or complaints. The patient was escorted from the operating room to the recovery room with vital signs stable and neurovascular structures intact. The patient will be nonweightbearing to the right lower extremity in a posterior splint with crutches and will follow up with Dr. aLnda, in Podiatry clinic in next week. Caty Adamson DPM Shayne Landa DPM
== END 2017-11-20 19:15 | disposition home or self-care (01) ==
LOC: H.OPSURG 09:11
PROVIDERS: ATTEND Podiatrist Foot & Ankle Surgery
DX: T84.84XA Pain due to internal orthopedic prosthetic devices, implants and grafts, initial encounter (principal); E11.9 Type 2 diabetes mellitus without complications; M54.9 Dorsalgia, unspecified; I10 Essential (primary) hypertension; Y83.1 Surgical operation with implant of artificial internal device as the cause of abnormal reaction of the patient, or of later complication, without mention of misadventure at the time of the procedure
CPT/HCPCS: 20680; 73610; 82948; 88304; C1713; J0330; J0690; J2250; J2704; J2710; J2765; J3010; J7030; J7120

== ENCOUNTER 2018-09-14 17:47 | Emergency (ER) | payer SELFPAY ==
[2018-09-14 17:48] VITALS: BMI 29.5
[2018-09-14 18:30] VITALS: PULSE 77
[2018-09-14] MEDS ORDERED: Sodium Chloride 0.9% 1,000 ML IV STA (19:15)
--- NOTE | 2018-09-14 19:17 | ED PDOC ---
HPI: General Adult Time Seen by Provider: 09/14/18 19:08 Chief Complaint (Nursing): Flu-like Symptoms Chief Complaint (Provider): Flu-like symptoms History Per: Patient History/Exam Limitations: no limitations Onset/Duration Of Symptoms: Days (x2 weeks) Current Symptoms Are (Timing): Still Present Additional Complaint(s): Aisha Blanco is a 63 year old female, with a past medical history of diabetes and HTN, who presents to the emergency department complaining of flu-like symptoms ongoing for x2 weeks. Patient is reporting fatigue, headache at night, cough, cold and runny nose. She reports sick contacts at home and states she has been taking Tylenol cold and sinus with no improvement. She denies any fever, chills, nausea, vomiting, diarrhea or other medical complaints. PMD: Jone Alcazar Past Medical History Reviewed: Historical Data, Nursing Documentation, Vital Signs Vital Signs: Last Vital Signs Temp 98.6 F 09/14/18 18:25 Pulse 77 09/14/18 18:25 Resp 19 09/14/18 18:25 BP 157/70 H 09/14/18 18:25 Pulse Ox 96 09/14/18 18:25 - Medical History PMH: Arthritis, Diabetes, Fractures (trimalleolar ), HTN, Hypercholesterolemia, Hyperlipidemia Denies: Chronic Kidney Disease - Surgical History Surgical History: - Family History Family History: States: Unknown Family Hx - Social History Current smoker - smoking cessation education provided: No Alcohol: None Drugs: Denies - Immunization History Hx Tetanus Toxoid Vaccination: No Hx Influenza Vaccination: No Hx Pneumococcal Vaccination: No - Home Medications Home Medications: Ambulatory Orders Medication Instructions Recorded Losartan [Cozaar] 100 mg PO DAILY 06/16/16 MetFORMIN [glucOPHAGE] 1,000 mg PO BID 06/16/16 Insulin Human (NPH)/Regular 55 units SUBCUT QAM 07/11/16 [Novolin 70/30 (70/30 units/ml) 10 ml] Carvedilol [Coreg] 3.125 mg PO BID 11/20/17 Insulin Human (NPH)/Regular 35 units SUBCUT HS 11/20/17 [Novolin 70/30 (70/30 units/ml) 10 ml] Polyethylene Glycol 3350 [Clearlax] 17 gm PO DAILY 11/20/17 cloNIDine [clonidine HCl] 0.1 mg PO BID 11/20/17 hydroCHLOROthiazide [Hydrodiuril] 25 mg PO DAILY 11/20/17 oxyCODONE/Acetaminophen [Percocet 1 mg PO Q4 PRN 11/20/17 5/325 mg Tab] Acetaminophen [Acetaminophen Extra 2 tab PO Q6 PRN #24 tablet 09/14/18 Strength] DiphenhydrAMINE [Benadryl] 25 mg PO ONCE PRN #10 cap 09/14/18 - Allergies Allergies/Adverse Reactions: Allergies Allergy/AdvReac Type Severity Reaction Status Date / Time No Known Allergies Allergy Verified 09/14/18 18:30 Review of Systems ROS Statement: Except As Marked, All Systems Reviewed And Found Negative Constitutional: Positive for: Other (fatigue). Negative for: Fever, Chills ENT: Positive for: Nose Discharge (runny nose), Nose Congestion Respiratory: Positive for: Cough Gastrointestinal: Negative for: Nausea, Vomiting, Diarrhea Neurological: Positive for: Headache Physical Exam - Reviewed Nursing Documentation Reviewed: Yes Vital Signs Reviewed: Yes - Physical Exam Appears: Positive for: No Acute Distress Head Exam: Positive for: ATRAUMATIC, NORMAL INSPECTION, NORMOCEPHALIC Skin: Positive for: Normal Color, Warm, Dry Eye Exam: Positive for: Normal appearance, EOMI, PERRL ENT: Positive for: Normal ENT Inspection. Negative for: Pharyngeal Erythema, Tonsillar Exudate, Tonsillar Swelling Neck: Positive for: Normal, Painless ROM, Supple Cardiovascular/Chest: Positive for: Regular Rate, Rhythm. Negative for: Murmur Respiratory: Positive for: Normal Breath Sounds. Negative for: Respiratory Distress Gastrointestinal/Abdominal: Positive for: Normal Exam, Soft. Negative for: Tenderness, Guarding, Rebound Back: Positive for: Normal Inspection. Negative for: L CVA Tenderness, R CVA Tenderness, Vertebral Tenderness Extremity: Positive for: Normal ROM (upper and lower extremities). Negative for: Deformity, Swelling Neurologic/Psych: Positive for: Alert, Oriented. Negative for: Motor/Sensory Deficits - Laboratory Results Result Diagrams: 09/14/18 19:24 09/14/18 19:24 - ECG ECG Rhythm: Positive for: Sinus Rhythm (nsr 73 bpm LBBB noted similar to old ekg 05/2017) O2 Sat by Pulse Oximetry: 96 (RA) Pulse Ox Interpretation: Normal - Progress ED Course And Treament: INFLUENZA A/B NEG RAPID STREP NEG ns 1 liter 500ml per hour repeat Blood pressure noted 182/82. Patient has been taking otc cold medication. Advised to stop until seen by pmd on monday. Medical Decision Making Medical Decision Making: Time: 19:08 Initial Impression: Viral illness Initial Plan: --VBG --EKG --CMP --Magnesium --TSH --Troponin I --CBC w/ differential --NaCl 1,000 ml IV 500 mls/hr --Tamiflu 75 mg PO --Blood culture --Urine culture --Influenza A B --Urinalysis --Reevaluation 20:57 Patient's labs are within normal limits. Upon provider reevaluation patient is feeling better, is medically stable, and requires no further treatment in the ED at this time. Patient will be discharged home. Counseling was provided and all questions were answered regarding diagnosis and need for follow up with PMD. There is agreement to discharge plan. Return if symptoms persist or worsen. Scribe Attestation: Documented by Neal Peace, acting as a scribe for Alex Scott PA-C. Provider Scribe Attestation: All medical record entries made by the Scribe were at my direction and personally dictated by me. I have reviewed the chart and agree that the record accurately reflects my personal performance of the history, physical exam, medical decision making, and the department course for this patient. I have also personally directed, reviewed, and agree with the discharge instructions and disposition. Disposition - Clinical Impression Clinical Impression: Viral illness, Elevated blood pressure reading - Patient ED Disposition Is Patient to be Admitted: No - Disposition Disposition: Routine/Home Disposition Time: 20:57 Condition: STABLE Prescriptions: Acetaminophen [Acetaminophen Extra Strength] 2 tab PO Q6 PRN #24 tablet PRN Reason: Pain, Moderate (4-7) DiphenhydrAMINE [Benadryl] 25 mg PO ONCE PRN #10 cap PRN Reason: Sleep Instructions: Hypertension (ED), Viral Upper Respiratory Infection, Adult (DC) Forms: [facility] ED School/Work Excuse Print Language: POLISH
[2018-09-14 19:37] LABS: BASO % 0.4 % (0.0-2.0); EOS % 0.8 % (0.0-4.0); HEMOGLOBIN 12.6 g/dL (12.0-16.0); LYMPH # 1.4 K/uL (1.0-4.3); MEAN CELL VOLUME 86.1 fl (81.0-99.0); MEAN CORPUSCULAR HEMOGLOBIN 28.4 pg (27.0-31.0); MONO # 0.5 K/uL (0.0-0.8); MONO % 9.3 % (0.0-10.0); NEUT # 3.8 K/uL (1.8-7.0); NEUT % 65.5 % (50.0-75.0); RBC 4.44 Mil/uL (3.80-5.20); RED CELL DISTRIBUTION WIDTH 14.1 % (11.5-14.5); WHITE BLOOD COUNT 5.8 K/uL (4.8-10.8)
[2018-09-14 19:41] LABS: VENOUS BLOOD GAS PCO2 52 mmHg (40-60); VENOUS BLOOD GAS PO2 27 mm/Hg (30-55)
[2018-09-14 20:10] LABS: ALB/GLOB RATIO 1.2 (1.0-2.1); ALBUMIN 4.4 g/dL (3.5-5.0); ALT/SGPT 40 U/L (9-52); AST/SGOT 33 U/L (14-36); BLOOD UREA NITROGEN 25 mg/dl (7-17); CALCIUM 9.4 mg/dL (8.4-10.2); GFR NON-AFRICAN AMERICAN > 60
[2018-09-14 21:00] LABS: SQUAMOUS EPITHIAL < 1 /hpf (0-5); URINE BILIRUBIN NEGATIVE (NEGATIVE); URINE BLOOD NEGATIVE (NEGATIVE); URINE CLARITY SLIGHTY-CLOUDY (Clear); URINE COLOR YELLOW (YELLOW); URINE GLUCOSE (UA) >=500 mg/dL (NEGATIVE); URINE LEUKOCYTE ESTERASE NEG Leu/uL (Negative); URINE PROTEIN NEGATIVE (NEGATIVE); URINE UROBILINOGEN 0.2-1.0 mg/dL (0.2-1.0)
[2018-09-14 21:57] VITALS: TEMP 98.3
[2018-09-14 22:01] VITALS: BP 182/82; RESP 16
[2018-09-14 22:21] VITALS: O2SAT 96
--- NOTE | 2018-09-15 21:44 | CARD ---
APPROVED REPORT Date of service: 09/14/2018 EKG Measurement Heart [id number] MD [id number] <Conclusion> Normal sinus rhythm Left bundle branch block Abnormal ECG
== END 2018-09-14 22:37 | disposition home or self-care (01) ==
LOC: H.ER 17:47
DX: B34.9 Viral infection, unspecified (principal); I10 Essential (primary) hypertension; E11.9 Type 2 diabetes mellitus without complications; E78.00 Pure hypercholesterolemia, unspecified; I44.7 Left bundle-branch block, unspecified; Z79.4 Long term (current) use of insulin
CPT/HCPCS: 80053; 81003; 82803; 83735; 84443; 84484; 85025; 87040; 87086; 87804; 93005; 96374; 99283; J1885; J7030